=== PATIENT | male | born 1990 | race Two or more races ===

== ENCOUNTER 2025-03-31 01:37 | Emergency (ER) | payer OTHER ==
[~2025-03-31] VITALS: Ht 165.1 cm; Wt 98.0 kg
[2025-03-31] MEDS: IV NS 0.9% 1,000 ML BAG IV ONE (02:10)
[2025-03-31 03:04] VITALS: BP 128/80; TEMP 97.9; O2SAT 100
== END 2025-03-31 03:05 | disposition home or self-care (01) ==
LOC: ER 01:37
DX: E86.0 Dehydration (principal); R42 Dizziness and giddiness
CPT/HCPCS: 99283; 96360; 82962; J7030